=== PATIENT | female | born 1975 ===

== ENCOUNTER 2022-01-10 13:12 | Outpatient (CLI) | payer OTHER | END 2022-01-10 13:26 | disposition home or self-care (01) | LOC: MAMO-SONO 13:12 | PROVIDERS: ATTEND Obstetrics & Gynecology Maternal & Fetal Medicine | DX: Z12.31 Encounter for screening mammogram for malignant neoplasm of breast (principal); N63.0 Unspecified lump in unspecified breast; N64.4 Mastodynia; N60.11 Diffuse cystic mastopathy of right breast ==

== ENCOUNTER 2025-01-16 13:19 | Outpatient (CLI) | payer OTHER | END 2025-01-16 13:28 | disposition home or self-care (01) | LOC: MAMO-SONO 13:19 | PROVIDERS: ATTEND Obstetrics & Gynecology Maternal & Fetal Medicine | DX: N63.0 Unspecified lump in unspecified breast (principal); Z12.31 Encounter for screening mammogram for malignant neoplasm of breast; N64.4 Mastodynia; N60.11 Diffuse cystic mastopathy of right breast ==